=== PATIENT | female | born 1995 | race Caucasian/White ===

== ENCOUNTER 2017-08-20 14:16 | Outpatient (CLI) | payer OTHER ==
[2017-08-20 14:54] LABS: APPEARANCE,URINE CLOUDY; BILIRUBIN,URINE NEGATIVE (NEGATIVE); GLUCOSE, URINE NEGATIVE (NEGATIVE); KETONES,URINE NEGATIVE (NEGATIVE); LEUKOCYTE ESTERASE,URINE LARGE (NEGATIVE); NITRITE,URINE NEGATIVE (NEGATIVE); PROTEIN,URINE NEGATIVE (NEGATIVE); URINE SPECIFIC GRAVITY 1.017; UROBILINOGEN,URINE NEGATIVE mg/dL (<2.0)
[2017-08-20 14:55] LABS: COLOR,URINE YELLOW
[2017-08-20] MEDS ORDERED: ACETAMINOPHEN 325 MG TABLET PO ONE (15:01)
[2017-08-20] MEDS ORDERED: ACETAMINOPHEN 325 MG TABLET ONE (15:03)
[2017-08-20 15:11] LABS: URINE AMPHETAMINES SCREEN NEGATIVE; URINE BARBITURATES SCREEN NEGATIVE; URINE BENZODIAZEPINES SCREEN NEGATIVE; URINE COCAINE SCREEN NEGATIVE; URINE MARIJUANA (THC) SCREEN NEGATIVE; URINE METHADONE SCREEN NEGATIVE; URINE PHENCYCLIDINE SCREEN NEGATIVE
== END 2017-08-20 15:35 | disposition home or self-care (01) ==
LOC: LC 14:16
PROVIDERS: ATTEND Obstetrics & Gynecology Gynecology
PROC: 4A1HXCZ Monitoring of Products of Conception, Cardiac Rate, External Approach (ICD-10-PCS; principal; 2017-08-20)
DX: O26.893 Other specified pregnancy related conditions, third trimester (principal); R51 Headache; Z3A.31 31 weeks gestation of pregnancy
CPT/HCPCS: 80307; 81001

== ENCOUNTER 2017-09-27 16:49 | Outpatient (CLI) | payer OTHER ==
[2017-09-27 17:42] LABS: AMNISURE (ROM) NEGATIVE (NEGATIVE)
--- NOTE | 2017-09-27 17:44 | Non Stress Test Report ---
Non Stress Test Datetime Report Generated by CPN: 09/27/2017 17:44 DEMOGRAPHIC EGA NST: 36.4 INDICATION Indication for Study: Ordered by Provider MONITORING Monitor Explained: Monitor Explained; Test Explained; Patient Verbalized Understanding Time on Monitor: 09/27/2017 17:09 Time off Monitor: 09/27/2017 17:42 NST Duration: 33 NST INTERVENTIONS NST Interventions: PO Hydration; Reposition Patient Physician Notified NST: H Juan M CNM BABY A: [id number] BABY A Movement : Present Contraction Frequency : 0 FHR Baseline : 135 Accelerations : 15X15 Decelerations : None Variability : Moderate 6-25bpm NST Review: Meets Criteria for Reactive NST NST Results: Reactive NST REPORT Report Trigger: Send Report
[2017-09-27 17:54] LABS: URINE AMPHETAMINES SCREEN NEGATIVE; URINE BARBITURATES SCREEN NEGATIVE; URINE BENZODIAZEPINES SCREEN NEGATIVE; URINE COCAINE SCREEN NEGATIVE; URINE MARIJUANA (THC) SCREEN NEGATIVE; URINE METHADONE SCREEN NEGATIVE; URINE PHENCYCLIDINE SCREEN NEGATIVE
[2017-09-27 17:59] LABS: APPEARANCE,URINE CLEAR; BILIRUBIN,URINE NEGATIVE (NEGATIVE); COLOR,URINE COLORLESS; GLUCOSE, URINE NEGATIVE (NEGATIVE); KETONES,URINE NEGATIVE (NEGATIVE)
[2017-09-27 18:00] LABS: LEUKOCYTE ESTERASE,URINE NEGATIVE (NEGATIVE); NITRITE,URINE NEGATIVE (NEGATIVE); PROTEIN,URINE NEGATIVE (NEGATIVE); URINE SPECIFIC GRAVITY 1.009; UROBILINOGEN,URINE NEGATIVE mg/dL (<2.0)
== END 2017-09-27 18:50 | disposition home or self-care (01) ==
LOC: LC 16:49
PROVIDERS: ATTEND Student in an Organized Health Care Education/Training Program
PROC: 4A1HXCZ Monitoring of Products of Conception, Cardiac Rate, External Approach (ICD-10-PCS; principal; 2017-09-27)
DX: Z34.93 Encounter for supervision of normal pregnancy, unspecified, third trimester (principal); Z3A.36 36 weeks gestation of pregnancy
CPT/HCPCS: 59025; 80307; 81001; 84112

== ENCOUNTER → 2017-10-10 | Outpatient (CLI) | payer OTHER ==
[~2017-10-10] MED LIST: HYDROXYZINE PAMOATE 50 MG CAPSULE ONE; HYDROXYZINE PAMOATE 50 MG CAPSULE PO ONE
[2017-10-10 22:44] LABS: APPEARANCE,URINE CLOUDY; BILIRUBIN,URINE NEGATIVE (NEGATIVE); GLUCOSE, URINE NEGATIVE (NEGATIVE); KETONES,URINE NEGATIVE (NEGATIVE); LEUKOCYTE ESTERASE,URINE NEGATIVE (NEGATIVE); NITRITE,URINE NEGATIVE (NEGATIVE); PROTEIN,URINE NEGATIVE (NEGATIVE); UROBILINOGEN,URINE NEGATIVE mg/dL (<2.0)
[2017-10-10 22:45] LABS: COLOR,URINE YELLOW
[2017-10-10 22:56] LABS: URINE AMPHETAMINES SCREEN NEGATIVE; URINE BARBITURATES SCREEN NEGATIVE; URINE BENZODIAZEPINES SCREEN NEGATIVE; URINE COCAINE SCREEN NEGATIVE; URINE MARIJUANA (THC) SCREEN NEGATIVE; URINE METHADONE SCREEN NEGATIVE; URINE PHENCYCLIDINE SCREEN NEGATIVE
--- NOTE | 2017-10-11 00:11 | Non Stress Test Report ---
Non Stress Test Datetime Report Generated by CPN: 10/11/2017 00:11 DEMOGRAPHIC EGA NST: 38.3 INDICATION Indication for Study: Ordered by Provider; Other Indication for Study (NST) Other: LC MONITORING Monitor Explained: Monitor Explained; Test Explained; Patient Verbalized Understanding Time on Monitor: 10/10/2017 22:02 Time off Monitor: 10/10/2017 23:14 NST Duration: 72 NST INTERVENTIONS NST Interventions: PO Hydration; Reposition Patient Physician Notified NST: Dr Ford BABY A: [id number] BABY A Movement : Present Contraction Frequency : Irritability FHR Baseline : 135 Accelerations : 15X15 Decelerations : None Variability : Moderate 6-25bpm NST Review: Meets Criteria for Reactive NST NST Review and Verified By : NELA AugustinT Results: Reactive NST REPORT Report Trigger: Send Report
== END ==
LOC: LC 21:34
PROVIDERS: ATTEND Student in an Organized Health Care Education/Training Program
PROC: 4A1HXCZ Monitoring of Products of Conception, Cardiac Rate, External Approach (ICD-10-PCS; principal; 2017-10-10)
DX: O47.1 False labor at or after 37 completed weeks of gestation (principal); Z3A.38 38 weeks gestation of pregnancy
CPT/HCPCS: 80307; 81001

== ENCOUNTER 2017-10-19 04:33 | Outpatient (CLI) | payer OTHER ==
[2017-10-19 05:13] LABS: APPEARANCE,URINE CLEAR; BILIRUBIN,URINE NEGATIVE (NEGATIVE); COLOR,URINE STRAW; GLUCOSE, URINE NEGATIVE (NEGATIVE); KETONES,URINE NEGATIVE (NEGATIVE); LEUKOCYTE ESTERASE,URINE NEGATIVE (NEGATIVE); NITRITE,URINE NEGATIVE (NEGATIVE); PROTEIN,URINE NEGATIVE (NEGATIVE); UROBILINOGEN,URINE NEGATIVE mg/dL (<2.0)
--- NOTE | 2017-10-19 06:01 | Non Stress Test Report ---
Non Stress Test Datetime Report Generated by CPN: 10/19/2017 06:01 DEMOGRAPHIC EGA NST: 39.5 INDICATION Indication for Study: Ordered by Provider Indication for Study (NST) Other: LC URINE RESULTS Urine Protein, NST: Negative Urine Ketones - NST: Negative Urine Glucose - NST: Negative Urine Blood - NST: Negative MONITORING Monitor Explained: Monitor Explained; Test Explained; Patient Verbalized Understanding Time on Monitor: 10/19/2017 04:52 Time off Monitor: 10/19/2017 05:39 NST Duration: 47 NST INTERVENTIONS NST Interventions: PO Hydration Physician Notified NST: Priest BABY A Movement : Present Contraction Frequency : 9-10 FHR Baseline : 135 Accelerations : Prolonged Decelerations : None Variability : Moderate 6-25bpm NST Review: Meets Criteria for Reactive NST NST Review and Verified By : Louisa Thorne RN NST Results: Reactive NST REPORT Report Trigger: Send Report
[2017-10-19 06:02] LABS: URINE AMPHETAMINES SCREEN NEGATIVE; URINE BARBITURATES SCREEN NEGATIVE; URINE BENZODIAZEPINES SCREEN NEGATIVE; URINE COCAINE SCREEN NEGATIVE; URINE MARIJUANA (THC) SCREEN NEGATIVE; URINE METHADONE SCREEN NEGATIVE; URINE PHENCYCLIDINE SCREEN NEGATIVE
== END 2017-10-19 06:56 | disposition home or self-care (01) ==
LOC: LC 04:33
PROVIDERS: ATTEND Obstetrics & Gynecology
PROC: 4A1HXCZ Monitoring of Products of Conception, Cardiac Rate, External Approach (ICD-10-PCS; principal; 2017-10-19)
DX: O47.1 False labor at or after 37 completed weeks of gestation (principal); Z3A.39 39 weeks gestation of pregnancy; Z79.899 Other long term (current) drug therapy
CPT/HCPCS: 80307; 81005

== ENCOUNTER 2017-10-19 15:58 | Inpatient (IN) | payer OTHER ==
[2017-10-19 16:50] LABS: APPEARANCE,URINE SLIGHTLY-CLOUDY; BILIRUBIN,URINE NEGATIVE (NEGATIVE); COLOR,URINE YELLOW; GLUCOSE, URINE NEGATIVE (NEGATIVE); KETONES,URINE TRACE mg/dL (NEGATIVE); LEUKOCYTE ESTERASE,URINE LARGE (NEGATIVE); NITRITE,URINE NEGATIVE (NEGATIVE); PROTEIN,URINE 30 mg/dL (NEGATIVE); URINE SPECIFIC GRAVITY 1.017; UROBILINOGEN,URINE NEGATIVE mg/dL (<2.0)
[2017-10-19 17:09] LABS: URINE AMPHETAMINES SCREEN NEGATIVE; URINE BARBITURATES SCREEN NEGATIVE; URINE BENZODIAZEPINES SCREEN NEGATIVE; URINE COCAINE SCREEN NEGATIVE; URINE MARIJUANA (THC) SCREEN NEGATIVE; URINE METHADONE SCREEN NEGATIVE; URINE PHENCYCLIDINE SCREEN NEGATIVE
--- NOTE | 2017-10-19 17:32 | Non Stress Test Report ---
Non Stress Test Datetime Report Generated by CPN: 10/19/2017 17:32 DEMOGRAPHIC EGA NST: 39.5 INDICATION Indication for Study: Ordered by Provider MONITORING Time on Monitor: 10/19/2017 16:13 Time off Monitor: 10/19/2017 16:39 NST Duration: 26 NST INTERVENTIONS NST Interventions: PO Hydration Physician Notified NST: J Buckner CNM BABY A: [id number] BABY A Movement : Present Contraction Frequency : irregular FHR Baseline : 135 Accelerations : 15X15 Decelerations : None Variability : Moderate 6-25bpm NST Review: Meets Criteria for Reactive NST NST Review and Verified By : Adriane Ramos RNC NST Results: Reactive NST REPORT Report Trigger: Send Report
[2017-10-19 18:16] LABS: HEMATOCRIT 38.8 % (36.0-47.0); HEMOGLOBIN 13.4 g/dL (12.0-15.5); MEAN CORPUSCULAR HEMOGLOBIN 30.4 pg (27.0-33.4); MEAN CORPUSCULAR HGB CONC 34.5 g/dL (32.0-36.0); MEAN CORPUSCULAR VOLUME 88 fl (80-97); PLATELET COUNT 295 10^3/uL (150-450); RED CELL DISTRIBUTION WIDTH 13.2 % (11.5-14.0); WHITE BLOOD COUNT 20.8 10^3/uL (4.0-10.5)
[2017-10-19 18:35] LABS: ABSOLUTE LYMPHOCYTES# (MANUAL) 1.9 10^3/uL (0.5-4.7); ABSOLUTE MONOCYTES # (MANUAL) 0.6 10^3/uL (0.1-1.4); ABSOLUTE NEUTROPHILS# (MANUAL) 18.3 10^3/uL (1.7-8.2); BASOPHILS % (MANUAL) 0 % (0-2); EOSINOPHILS % (MANUAL) 0 % (0-6); LYMPHOCYTES % (MANUAL) 8 % (13-45); MONOCYTES % (MANUAL) 3 % (3-13); SEGMENTED NEUTROPHILS % (MAN) 88 % (42-78); TOTAL CELLS COUNTED 100
[2017-10-19 18:38] LABS: OVALOCYTES SLIGHT; PLATELET COMMENT ADEQUATE; POIKILOCYTOSIS SLIGHT
[2017-10-19] MEDS ORDERED: VANCOMYCIN HCL INJ 1000 MG VIAL ONE (18:41)
[2017-10-19 18:42] LABS: PLATELET LARGE PRESENT
[2017-10-19] MEDS ORDERED: RINGERS SOLUTION,LACTATED 300 ML IV ONE (20:29)
[2017-10-19] MEDS ORDERED: RINGERS SOLUTION,LACTATED 1,000 ML IV PRN (20:29)
[2017-10-19] MEDS ORDERED: OXYTOCIN/NORMAL SALINE 20 UNIT/1,000 ML RTUINJ IV PRN (20:37)
[2017-10-19] MEDS ORDERED: OXYTOCIN/NORMAL SALINE 20 UNIT/1,000 ML RTUINJ ONE (20:48)
--- NOTE | 2017-10-19 22:30 | Admission Physical ---
Datetime Report Generated by CPN: 10/19/2017 22:29 CURRENT ADMISSION Chief Complaint: Uterine Contractions Indication for Induction: Not Applicable Admit Impression : Term, Intrauterine ; Active Labor Admit Plan: Admit to Unit; Initiate Labor Augmentation Protocol ALLERGIES Medication Allergies: Yes Medication Allergies: aspirin (10/19/2017); ibuprofen (10/19/2017); penicillin G (10/19/2017) Latex: No Latex Allergies OBSTETRICAL HISTORY EDC: 10/21/2017 00:00 : 1 Para: 0 Term: 0 : 0 SAB: 0 IAB: 0 Ectopic: 0 Livin Cesareans: 0 VBACs: 0 Multiple Births: 0 Gestational Diabetes: No Rh Sensitization: No Incompetent Cervix: No LINDSAY: No Infertility: No ART Treatment: No Uterine Anomaly: No IUGR: No Hx Previous C/S: No Macrosomia: No Hx Loss/Stillborn: No PIH: No Hx : No Placenta Previa/Abruption: No Depression/PP Depression: No PTL/PROM: No Post Hemorrhage: No Current Procedures: Ultrasound Obstetrical History Comments: G1: current SEE RECORDS Alcohol: No Marijuana : No Cocaine: No Other Illicit Drugs: No Cigarettes: Never Smoker. [id number] MEDICAL HISTORY Diabetes: No Blood Transfusion: No Pulmonary Disease (Asthma, TB): No Breast Disease: No Hypertension: No Audit Director Surgery: No Heart Disease: No Hosp/Surgery: Yes Autoimmune Disorder: No Anesthetic Complications: No Kidney Disease: No Abnormal Pap Smear: No Neuro/Epilepsy: No Psychiatric Disorders: No Other Medical Diseases: No Hepatitis/Liver Disease: No Significant Family History: No Varicosities/Phlebitis: No Trauma/Violence : No Thyroid Dysfunction: No Medical History Comments: mouth surgery 16 years ago INFECTIOUS HISTORY Gonorrhea: No Genital Herpes: No Chlamydia: Yes Tuberculosis: No Syphilis: No Hepatitis: No HIV/AIDS Exposure: No Rash or Viral Illness: No HPV: No Infectious History Comments: Chlamydia 03/2017 PHYSICAL EXAM General: Normal HEENT: Normal Neurologic: Normal Thyroid: Normal Heart: Normal Lungs: Normal Breast: Normal Back: Normal Abdomen: Normal Genitourinary Exam: Normal Extremities: Normal DTRs: Normal Pelvic Type: Adequate Vital Signs: Reviewed; Within Normal Limits VAGINAL EXAM Dilatation: 4 Effacement: 80 Station: -1 MEMBRANES Pooling: Negative Membranes: Intact FETUS A EGA: 39.5 Monitoring: External US FHR- Baseline: 150 Variability: Moderate 6-25bpm Accelerations: 15X15 Decelerations: None FHR Category: Category I Estimated Weight (gm): 3500 Presentation: Vertex Admit Comment: admit for Augmentation of labor. PLANS FOR LABOR AND DELIVERY Labor and Delivery: None Pain Management: Natural Feeding Preference: Formula Circumcision: N/A INFORMED CONSENT Signature: with User ID: Callie
[2017-10-20] MEDS ORDERED: MISOPROSTOL 0.2 MG TABLET ONE (00:10)
[2017-10-20] MEDS ORDERED: LIDOCAINE 1% INJ-PF (10 MG/ML) 30 ML SDV ONE (00:10)
[2017-10-20] MEDS ORDERED: OXYTOCIN/NORMAL SALINE 0 UNIT/0 ML RTUINJ ONE (00:10)
[2017-10-20] MEDS ORDERED: OXYTOCIN/NORMAL SALINE 20 UNIT/1,000 ML RTUINJ IV PRN (00:54)
[2017-10-20] MEDS ORDERED: DIBUCAINE 1% OINTMENT 28 GM TP PRN (00:54)
[2017-10-20] MEDS ORDERED: BENZOCAINE/MENTHOL AEROSOL SPRAY 56 ML TOP PRN (00:54)
[2017-10-20] MEDS ORDERED: ACETAMINOPHEN WITH CODEINE #3 TABLET PO PRN ×2 (00:54)
[2017-10-20] MEDS ORDERED: PROMETHAZINE HCL 25 MG TABLET PO PRN (00:54)
[2017-10-20] MEDS ORDERED: ZOLPIDEM TARTRATE 5 MG TABLET PO PRN (00:54)
[2017-10-20] MEDS ORDERED: NA PHOS,M-B/NA PHOS,DI-BA (ADULT) 133 ML ENEMA PR PRN (00:54)
[2017-10-20] MEDS ORDERED: PSEUDOEPHEDRINE HCL 30 MG TABLET PO PRN (00:54)
[2017-10-20] MEDS ORDERED: ACETAMINOPHEN 650 MG SUPP.RECT PR PRN (00:54)
[2017-10-20] MEDS ORDERED: PROMETHAZINE HCL INJ 25 MG/1 ML VIAL IV PRN (00:54)
[2017-10-20] MEDS ORDERED: PROMETHAZINE HCL 25 MG SUPP.RECT PR PRN (00:54)
[2017-10-20] MEDS ORDERED: MEASLES,MUMPS&RUBELLA VACC/PF 0.5 ML VIAL SUBCUT PRN (00:54)
[2017-10-20] MEDS ORDERED: DIPHENHYDRAMINE HCL 25 MG CAPSULE PO PRN (00:54)
[2017-10-20] MEDS ORDERED: MAGNESIUM HYDROXIDE SUSP 30 ML UDCUP PO PRN (00:54)
[2017-10-20] MEDS ORDERED: GLYCERIN/WITCH HAZEL LEAF 1 EACH MED..PAD TP PRN (00:54)
[2017-10-20] MEDS ORDERED: DIPH/PERTUSS(ACELL)/TETANUS VAC/PF 0.5 ML SYR (>=10YO) IM PRN (00:54)
[2017-10-20] MEDS ORDERED: ACETAMINOPHEN 325 MG TABLET ONE (01:20)
[2017-10-20] MEDS: ACETAMINOPHEN 325 MG TABLET PO PRN ×2 (01:20→17:12)
--- NOTE | 2017-10-20 03:52 | Delivery Summary ---
Del Sum A-C Datetime Report Generated by CPN: 10/20/2017 03:52 DELIVERY PERSONNEL DELIVERY PERSONNEL: [id number] Delivery Doctor:: Anu Mireles MD Labor and Delivery Nurse:: Aaliyah Black RNbeater boss Nurse:: Joyce Kiser RN Order Expediter:: Nannette Fenton RN Nursery Nurse:: Xi Castellanos RN Nursery Nurse:: Ellen Garner RN Promotional Marketing Analyst/LINK WIRE FABRIC MACHINE TENDER: jose sarah, st MATERNAL INFORMATION Delivery Anesthesia: None Medications After Delivery: Pitocin Bolus-Please Comment; Pitocin Drip 20 Units/1000ml NSS Meds After Delivery Comment: ns with pitocin 20 units/liter ivf bolus Maternal Complications: None LABOR SUMMARY EDC: 10/21/2017 00:00 No. Babies in Womb: 1 Attempted: No Labor Anesthesia: None LABOR INFORMATION Reason for Induction: Not Applicable Onset of Labor: 10/19/2017 20:26 Complete Dilatation: 10/20/2017 00:08 Oxytocin: Augmentation Group B Beta Strep: positive Antibiotics # of Doses: 1 Antibiotics Time of Last Dose: 1852 Name of Antibiotic Given: Vancomycin Steroids Given: None Reason Steroids Not Administered: Not Applicable MEMBRANES Membranes Rupture Method: Artificial Rupture of Membranes: 10/19/2017 23:18 Length of Rupture (hr): 1.28 Amniotic Fluid Color: Light Meconium Amniotic Fluid Amount: Small Amniotic Fluid Odor: Normal STAGES OF LABOR Stage 1 hr: 3 Stage 1 min: 42 Stage 2 hr: 0 Stage 2 min: 27 Stage 3 hr: 0 Stage 3 min: 6 Total Time in Labor hr: 4 Total Time in Labor min: 15 VAGINAL DELIVERY Episiotomy: None Laceration #1: None Laceration Extension #1: N/A Sponge Count Correct: Yes CSECTION DELIVERY Primary Indication: N/A Secondary Indication: N/A CSection Incidence: N/A Labor: N/A Elective: N/A CSection Incision: N/A BABY A INFORMATION Delivery Date/Time: 10/20/2017 00:35 Method of Delivery: Vaginal Born in Route : No : N/A Forceps: N/A Vacuum Extraction: N/A Shoulder Dystocia : No PRESENTATION/POSITION BABY A Presentation: Cephalic Cephalic Presentation: Vertex Vertex Position: Left Occipital Anterior Breech Presentation: N/A PLACENTA INFORMATION BABY A Placenta Delivery Time : 10/20/2017 00:41 Placenta Method of Delivery: Spontaneous Placenta Status: Delivered SCORES BABY A Heart Rate 1 min: >100 bpm Resp Effort 1 min: Good Cry Reflex Irritability 1 min: Cough or Sneeze or Pulls Away Muscle Tone 1 min: Active Motion Color 1 min: Blue/Pale Resuscitation Effort 1 min: Tactile Stimulation SCORE 1 MIN: 8 Heart Rate 5 min: >100 bpm Resp Effort 5 min: Good Cry Reflex Irritability 5 min: Cough or Sneeze or Pulls Away Muscle Tone 5 min: Active Motion Color 5 min: Body [place], Extremities Blue Resuscitation Effort 5 min: Tactile Stimulation SCORE 5 MIN: 9 INFANT INFORMATION BABY A Gestational Age at Delivery: 39.6 Gestational Status: Full Term- 39- 40.6 Weeks Infant Outcome : Liveborn Condition : Stable Sex: Female IDENTIFICATION BABY A Infant Verification Date/Time: 10/20/2017 00:41 ID Band Number: [id number] Mother's Name Verified: Yes RN Verifying Infant: rn alfredo Additional Verifying Personnel: stone banker sera WEIGHT/LENGTH BABY A Birthweight (gm): 2900 Infant Weight (lb): 6 Infant Weight (oz): 6 Infant Length (in): 19.50 Length (cm): 49.53 CORD INFORMATION BABY A No. Cord Vessels: 3 Nuchal Cord : N/A Cord Blood Taken: Yes-For Storage (Mom's Blood type +) (Annotations: Data stored by [facility] on behalf of user) Suction: Mouth; Nose ASSESSMENT BABY A Infant Complications: None Physical Findings at Delivery: Molding of the Head Physical Findings- Other: See full nursery assessment Respirations: Appears Normal Skin to Skin: Yes Skin to Skin Time (min): 100 Mechanical Supervisor/ALS Called : No Infant Care By: Vickie Castellanos Transferred To: Remains with Mother BABY B INFORMATION : N/A
[2017-10-20] MEDS ORDERED: IBUPROFEN 800 MG TABLET PO SCH (06:00)
[2017-10-20] MEDS: FAMOTIDINE 20 MG TABLET PO SCH ×2 (09:26→22:27)
[2017-10-20] MEDS: PRENATAL VITAMIN W DHA CAPSULE PO SCH (09:26)
[2017-10-20] MEDS: SENNOSIDES/DOCUSATE 8.6-50 MG 1 EACH TABLET PO SCH (09:26)
[2017-10-20] MEDS: FERROUS SULFATE 325 MG TABLET PO SCH ×2 (09:26→17:11)
[2017-10-20] MEDS: DOCUSATE SODIUM 100 MG CAPSULE PO SCH ×2 (09:26→17:11)
--- NOTE | 2017-10-20 09:29 | PDOC PROGRESS REPORT ---
Subjective-OB Progress Note for:: 10/20/17 Subjective: Doing well, no c/o, bottle feeding, voiding, mod lochia, voiding Physical Exam (OB) Vital Signs: Temp Pulse Resp BP Pulse Ox 98.3 F 97 H 16 131/59 H 99 10/20/17 08:04 10/20/17 08:04 10/20/17 08:04 10/20/17 08:04 10/20/17 08:04 Intake & Output 10/19/17 10/20/17 10/21/17 06:59 06:59 06:59 Weight 100.8 kg - Lochia Lochia Amount: Scant < 10 ml Lochia Color: Rubra/Red - Abdomen Description: Tender, Soft, Round Hernia Present: Yes Fundal Description: Firm, Midline Fundal Height: u/u - u/2 Objective-Diagnostic Laboratory: 10/19/17 18:02 10/19/17 10/19/17 10/19/17 16:11 18:02 18:02 WBC 20.8 H RBC 4.40 Hgb 13.4 Hct 38.8 MCV 88 MCH 30.4 MCHC 34.5 RDW 13.2 Plt Count 295 Seg Neutrophils % Not Reportable Lymphocytes % Not Reportable Monocytes % Not Reportable Eosinophils % Not Reportable Basophils % Not Reportable Absolute Neutrophils Not Reportable Absolute Lymphocytes Not Reportable Absolute Monocytes Not Reportable Absolute Eosinophils Not Reportable Absolute Basophils Not Reportable Urine Color YELLOW Urine Appearance SLIGHTLY-CLOUDY Urine pH 7.0 Ur Specific [place] 1.017 Urine Protein 30 H Urine Glucose (UA) NEGATIVE Urine Ketones TRACE H Urine Blood MODERATE H Urine Nitrite NEGATIVE Ur Leukocyte Esterase LARGE H Blood Type A POSITIVE Antibody Screen NEGATIVE Assessment and Plan(PN) - Assessment and Plan (1) Normal vaginal delivery Is this a current diagnosis for this admission?: Yes (2) GBS (group B Streptococcus carrier), +RV culture, currently Is this a current diagnosis for this admission?: Yes - Time Spent with Patient Time with patient: Less than 15 minutes Medications reviewed and adjusted accordingly: Yes - Disposition Anticipated Discharge: Home Within: within 24 hours
[2017-10-21 08:14] LABS: HEMATOCRIT 35.2 % (36.0-47.0); HEMOGLOBIN 12.1 g/dL (12.0-15.5); MEAN CORPUSCULAR HEMOGLOBIN 30.9 pg (27.0-33.4); MEAN CORPUSCULAR HGB CONC 34.4 g/dL (32.0-36.0); MEAN CORPUSCULAR VOLUME 90 fl (80-97); PLATELET COUNT 237 10^3/uL (150-450); RED BLOOD COUNT 3.93 10^6/uL (3.72-5.28); RED CELL DISTRIBUTION WIDTH 13.3 % (11.5-14.0); WHITE BLOOD COUNT 10.3 10^3/uL (4.0-10.5)
[2017-10-21] MEDS: FERROUS SULFATE 325 MG TABLET PO SCH ×2 (09:29→17:08)
[2017-10-21] MEDS: PRENATAL VITAMIN W DHA CAPSULE PO SCH (09:29)
[2017-10-21] MEDS: FAMOTIDINE 20 MG TABLET PO SCH ×2 (09:29→22:16)
[2017-10-21] MEDS: SENNOSIDES/DOCUSATE 8.6-50 MG 1 EACH TABLET PO SCH (09:29)
[2017-10-21] MEDS: DOCUSATE SODIUM 100 MG CAPSULE PO SCH ×2 (09:30→17:07)
--- NOTE | 2017-10-21 09:44 | PDOC PROGRESS REPORT ---
Subjective-OB Progress Note for:: 10/21/17 Subjective: Doing well, holding baby, no c/o Physical Exam (OB) Vital Signs: Temp Pulse Resp BP Pulse Ox 97.6 F 68 18 125/70 100 10/21/17 07:12 10/21/17 07:12 10/21/17 07:12 10/21/17 07:12 10/21/17 07:12 Intake & Output 10/20/17 10/21/17 10/22/17 06:59 06:59 06:59 Weight 100.8 kg - Lochia Lochia Amount: Scant < 10 ml Lochia Color: Rubra/Red - Abdomen Description: Tender, Soft, Round Hernia Present: No Fundal Description: Firm, Midline Fundal Height: u/u - u/2 Objective-Diagnostic Laboratory: 10/21/17 07:32 10/21/17 07:32 WBC 10.3 RBC 3.93 Hgb 12.1 Hct 35.2 L MCV 90 MCH 30.9 MCHC 34.4 RDW 13.3 Plt Count 237 Assessment and Plan(PN) - Assessment and Plan (1) Normal vaginal delivery Is this a current diagnosis for this admission?: Yes (2) GBS (group B Streptococcus carrier), +RV culture, currently Is this a current diagnosis for this admission?: Yes - Time Spent with Patient Time with patient: Less than 15 minutes Medications reviewed and adjusted accordingly: Yes - Disposition Anticipated Discharge: Home Within: within 24 hours
[2017-10-22 07:35] VITALS: BP 119/64
--- NOTE | 2017-10-22 08:34 | PDOC DISCHARGE SUMMARY ---
Final Diagnosis Discharge Date: 10/22/17 Discharge Data - Discharge Medication Prescriptions: Docusate Sodium [Colace 100 mg Capsule] 100 mg PO BID #60 capsule Home Medications: Acetaminophen [Tylenol] 325 mg PO PRN PRN 08/20/17 Vit,Calc76/Iron/Folic [Pnv 29-1 Tablet] 1 each PO DAILY 08/20/17 Docusate Sodium [Colace 100 mg Capsule] 100 mg PO BID #60 capsule 10/22/17 Gestational Age: 39 Reason(s) for Admission: Onset of Labor, Group B Strep Positive Procedures: NST Intrapartum Procedure(s): Spontaneous Vaginal Delivery - Data Baby 1 Female at 1 minute: 8 at 5 minutes: 9 Weight: 2.892 kg Home with Mother: Yes Complications: No - Diagnosis Test Laboratory: Temp Pulse Resp BP Pulse Ox 98.3 F 76 16 119/64 100 10/22/17 07:23 10/22/17 07:23 10/22/17 07:23 10/22/17 07:23 10/22/17 07:23 10/19/17 10/19/17 10/21/17 16:11 18:02 07:32 RBC 4.40 3.93 Hgb 13.4 12.1 Hct 38.8 35.2 L Urine Opiates Screen NEGATIVE - Discharge information/Instructions Discharge Activity: Activity As Tolerated, Pelvic Rest, No tub bath Discharge Diet: Regular Disposition: HOME, SELF-CARE Follow up with: [facility] in: 4, Weeks
[2017-10-22] MEDS: DOCUSATE SODIUM 100 MG CAPSULE PO SCH (10:22)
[2017-10-22] MEDS: SENNOSIDES/DOCUSATE 8.6-50 MG 1 EACH TABLET PO SCH (10:22)
[2017-10-22] MEDS: FERROUS SULFATE 325 MG TABLET PO SCH (10:22)
[2017-10-22] MEDS: PRENATAL VITAMIN W DHA CAPSULE PO SCH (10:22)
[2017-10-22] MEDS: FAMOTIDINE 20 MG TABLET PO SCH (10:22)
== END 2017-10-22 10:45 | disposition home or self-care (01) | DRG 775 ==
LOC: LC 15:58 → LR 17:51 → 2S 10-20 02:43
PROVIDERS: ADMIT Obstetrics & Gynecology; ATTEND Obstetrics & Gynecology
PROC: 10907ZC Drainage of Amniotic Fluid, Therapeutic from Products of Conception, Via Natural or Artificial Opening (ICD-10-PCS; 2017-10-19)
PROC: 4A1HXCZ Monitoring of Products of Conception, Cardiac Rate, External Approach (ICD-10-PCS; 2017-10-19)
PROC: 10E0XZZ Delivery of Products of Conception, External Approach (ICD-10-PCS; principal; 2017-10-20)
DX: O99.824 Streptococcus B carrier state complicating childbirth (principal); O77.0 Labor and delivery complicated by meconium in amniotic fluid; Z88.6 Allergy status to analgesic agent; Z88.0 Allergy status to penicillin; Z3A.39 39 weeks gestation of pregnancy; Z37.0 Single live birth
CPT/HCPCS: 36415; 80307; 81005; 85025; 85027; 86592; 86850; 86900; 86901; J2590; J3370; J3490